=== PATIENT | female | born 1975 | race Caucasian/White ===

== ENCOUNTER 2018-02-14 19:53 | Emergency (ER) | payer MEDICAID | END 2018-02-14 20:16 | disposition home or self-care (01) | LOC: E/R 19:53 | DX: J30.2 Other seasonal allergic rhinitis (principal); I10 Essential (primary) hypertension | CPT/HCPCS: 99283; Z7502 ==

== ENCOUNTER 2019-05-23 21:50 | Emergency (ER) | payer MEDICAID | END 2019-05-23 23:22 | disposition home or self-care (01) | LOC: FTE 21:50 | DX: L29.9 Pruritus, unspecified (principal); I10 Essential (primary) hypertension; T45.8X5A Adverse effect of other primarily systemic and hematological agents, initial encounter | CPT/HCPCS: 99282; Z7502 ==